=== PATIENT | male | born 2000 | race Caucasian/White ===

== ENCOUNTER 2020-06-27 00:16 | Emergency (ER) | payer OTHER ==
[2020-06-27] MEDS ORDERED: MEDROL 4MG DOSEP4 MG PO (01:23)
== END 2020-06-27 01:55 | disposition home or self-care (01) ==
LOC: FER 00:16
DX: M77.8 Other enthesopathies, not elsewhere classified (principal); F17.200 Nicotine dependence, unspecified, uncomplicated; Z88.6 Allergy status to analgesic agent
CPT/HCPCS: 73130

== ENCOUNTER 2020-11-22 19:10 | Emergency (ER) | payer OTHER ==
[~2020-11-22 19:10] MED LIST: MEDROL 4MG DOSEP4 MG PO
== END 2020-11-22 20:55 | disposition left against medical advice (07) ==
LOC: FER 19:10
DX: M79.672 Pain in left foot (principal); M79.671 Pain in right foot; R07.1 Chest pain on breathing; Z53.8 Procedure and treatment not carried out for other reasons

== ENCOUNTER 2021-02-19 13:48 | Emergency (ER) | payer OTHER ==
[2021-02-19] MEDS ORDERED: MEDROL 4MG DOSEP4 MG PO ×3 (17:32→17:38)
== END 2021-02-19 18:08 | disposition home or self-care (01) ==
LOC: FER 13:48
DX: S86.811A Strain of other muscle(s) and tendon(s) at lower leg level, right leg, initial encounter (principal); Z88.6 Allergy status to analgesic agent
CPT/HCPCS: 73560

== ENCOUNTER 2021-02-27 07:42 | Emergency (ER) | payer OTHER ==
[2021-02-27 08:27] LABS: BILIRUBIN NEGATIVE (NEGATIVE); BLOOD 2+ Ery/uL (NEGATIVE); CLARITY CLEAR (CLEAR); COLOR YELLOW (YELLOW); GLUCOSE (U) NORMAL (NORMAL); LEUKOCYTES TRACE Leu/uL (NEGATIVE); NITRITE NEGATIVE (NEGATIVE); PROTEIN 2+ mg/dL (NEGATIVE); SPECIFIC GRAVITY 1.025 (1.001-1.030); UROBILINOGEN 0.2 mg/dL (0.2-1.0)
[2021-02-27 08:40] LABS: BACTERIA TRACE; URINARY RBC RARE
[2021-02-27 08:43] LABS: BASOPHIL 0.6 % (0-2); EOSINOPHIL 1.1 % (0-5); HCT 40.8 % (42.0-52.0); HGB 13.3 g/dl (13.2-18.0); LYMPHOCYTE 25.7 % (15-48); MCH 29.4 pg (25.0-31.0); MCHC 32.6 g/dL (32.0-36.0); MCV 90.1 fL (78.0-100.0); MONOCYTE 7.9 % (0-12); NEUTROPHIL 64.3 % (41-80); NRBC 0; PLT 181 K/uL (150-400); RBC 4.53 M/uL (4.70-6.00); RDW 13.3 % (11.5-14.0); WBC 7.1 K/uL (4.0-10.5)
[2021-02-27 08:54] LABS: CREATININE 5.21 mg/dL (0.67-1.17); POTASSIUM 3.6 mmol/L (3.5-5.1)
[2021-02-27] MEDS ORDERED: FLOMAX0.4 MG PO (12:23)
== END 2021-02-27 12:49 | disposition home or self-care (01) ==
LOC: FER 07:42
PROVIDERS: Internal Medicine
DX: N13.2 Hydronephrosis with renal and ureteral calculous obstruction (principal); N17.9 Acute kidney failure, unspecified; N18.9 Chronic kidney disease, unspecified; F17.210 Nicotine dependence, cigarettes, uncomplicated; Z20.822 Contact with and (suspected) exposure to COVID-19; Z88.6 Allergy status to analgesic agent
CPT/HCPCS: 36415; 80048; 81001; 85025; 87088; U0002